=== PATIENT | female | born 1965 | race Two or more races ===

== ENCOUNTER 2017-11-21 10:36 | Outpatient (CLI) | payer OTHER ==
[~2017-11-21 10:36] MED LIST: VISTARIL50 MG PO
== END 2017-11-21 10:41 | disposition home or self-care (01) ==
LOC: MAMO-SONO 10:36
DX: N63.10 Unspecified lump in the right breast, unspecified quadrant (principal)

== ENCOUNTER 2018-06-03 15:05 | Outpatient (CLI) | payer OTHER | END 2018-06-03 15:17 | disposition home or self-care (01) | LOC: MAMO-SONO 15:05 | DX: Z12.31 Encounter for screening mammogram for malignant neoplasm of breast (principal); N60.11 Diffuse cystic mastopathy of right breast ==

== ENCOUNTER 2021-08-09 07:00 | Inpatient (IN) | payer OTHER ==
[~2021-08-09] VITALS: Ht 157.5 cm; Wt 71.7 kg
[2021-08-17] MEDS ORDERED: GABAPENTIN300 MG PO (07:41)
[2021-08-17] MEDS ORDERED: POLY119PG PO (07:42)
[2021-08-17] MEDS ORDERED: SIMETHICONE125 M1 PO (07:42)
[2021-08-17] MEDS ORDERED: IBUPROFEN800 MG PO (07:42)
== END 2021-08-17 11:48 | disposition home or self-care (01) | DRG 743 ==
LOC: OB/GYN 08-14 05:30 → O/R 08-14 05:30 → SURH 08-14 07:00 → OB/GYN 08-14 11:28
PROVIDERS: ADMIT Obstetrics & Gynecology; ATTEND Obstetrics & Gynecology
PROC: 0UT00ZZ Resection of Right Ovary, Open Approach (ICD-10-PCS; 2021-08-14)
PROC: 0UT50ZZ Resection of Right Fallopian Tube, Open Approach (ICD-10-PCS; 2021-08-14)
PROC: 0UT90ZZ Resection of Uterus, Open Approach (ICD-10-PCS; principal; 2021-08-14 07:00)
DX: N72 Inflammatory disease of cervix uteri (principal); N80.0 Endometriosis of uterus; D25.1 Intramural leiomyoma of uterus; D25.0 Submucous leiomyoma of uterus; N83.311 Acquired atrophy of right ovary; N93.9 Abnormal uterine and vaginal bleeding, unspecified; R10.2 Pelvic and perineal pain